=== PATIENT | female | born 1965 | race Two or more races ===

== ENCOUNTER 2019-02-05 18:58 | Emergency (ER) | payer OTHER ==
[~2019-02-05] VITALS: Ht 147.3 cm; Wt 54.4 kg
[2019-02-05] MEDS ORDERED: IV NORMAL SALINE 1000ML BAG 1,000 ML IV ONE (19:30)
[2019-02-05] MEDS ORDERED: FAMOTIDINE 20 MG/2 ML VIAL IVP ONE (19:30)
[2019-02-05] MEDS ORDERED: ONDANSETRON PF 4 MG/2 ML VIAL. IV ONE ×2 (19:30→21:30)
[2019-02-05 19:34] LABS: BASO % 0 % (0-3); EOS % 1 % (0-3); HEMATOCRIT 29.7 % (36.0-47.0); HEMOGLOBIN 10.2 g/dL (12.0-15.5); LYMPH # 3.2 x10^3/uL (1.0-4.8); LYMPH % 55 % (24-48); MEAN CORPUSCULAR HEMOGLOBIN 31 pg (25-35); MEAN CORPUSCULAR HGB CONC 34 g/dL (31-37); MEAN CORPUSCULAR VOLUME 90 fL (79-100); MONO # 0.5 x10^3/uL (0.0-1.1); MONO % 8 % (0-9); NEUT # 2.1 x10^3/uL (1.8-7.7); NEUT % 36 % (31-73); PLATELET COUNT 173 x10^3/uL (140-400); RED BLOOD COUNT 3.32 x10^6/uL (3.50-5.40); RED CELL DISTRIBUTION WIDTH 12.3 % (11.5-14.5); WHITE BLOOD COUNT 5.9 x10^3/uL (4.0-11.0)
[2019-02-05 19:38] LABS: CALCIUM 9.2 mg/dL (8.5-10.1); CREATININE 1.3 mg/dL (0.6-1.0); GFR 42.8; POTASSIUM 3.4 mmol/L (3.5-5.1)
[2019-02-05 19:43] LABS: ALBUMIN 3.7 g/dL (3.4-5.0); ALBUMIN/GLOBULIN RATIO 1.1 (1.0-1.7); MAGNESIUM 1.8 mg/dL (1.8-2.4); TOTAL BILIRUBIN 0.2 mg/dL (0.2-1.0); TOTAL PROTEIN 7.1 g/dL (6.4-8.2)
[2019-02-05] MEDS ORDERED: fentaNYL PF VIAL 100 MCG/2 ML VIAL IV ONE (20:15)
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
[2019-02-05 21:19] LABS: BILIRUBIN,URINE NEGATIVE (NEG); CLARITY,URINE CLEAR; COLOR,URINE YELLOW; NITRITE,URINE NEGATIVE (NEG); PH,URINE 7.5; PROTEIN,URINE NEGATIVE (NEG-TRACE); UROBILINOGEN,URINE 0.2 mg/dL (0.2 mg/dL)
[2019-02-05 21:23] LABS: BACTERIA,URINE 0 /HPF (0-FEW); RBC,URINE RARE /HPF (0-2); SQUAMOUS EPITHELIAL CELL,UR OCC /LPF
[2019-02-05] MEDS ORDERED: KETOROLAC 15 MG/ML VIAL. IV ONE (21:30)
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
[2019-02-06] MEDS ORDERED: ONDA4TAB12 PO (00:07)
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
[2019-02-06 00:15] VITALS: BP 115/55
--- NOTE | 2019-02-06 06:05 | EKG ---
[facility] [address] [place] [address] Test Date: 2019-02-05 Test Time: 19:27:52 Pat Name: MACK BRENNAN Department: Room: Gender: F Cutter Hand: : 1965 Requested By: BROCK VOGEL Order Number: [id number] Reading MD: Measurements Intervals [place] Rate: 58 P: 0 [place]: 154 QRS: 11 QRSD: 84 T: 24 QT: 422 QTc: 418 Interpretive Statements SINUS RHYTHM QRS(T) CONTOUR ABNORMALITY CONSIDER ANTEROLATERAL MYOCARDIAL DAMAGE POSSIBLY ABNORMAL ECG RI6.01 No previous ECG available for comparison
== END 2019-02-06 00:20 | disposition home or self-care (01) ==
LOC: ER 18:58
DX: R55 Syncope and collapse (principal); M53.3 Sacrococcygeal disorders, not elsewhere classified; V89.2XXA Person injured in unspecified motor-vehicle accident, traffic, initial encounter; Y93.89 Activity, other specified; Y92.89 Other specified places as the place of occurrence of the external cause; Y99.8 Other external cause status
CPT/HCPCS: 36415; 70450; 71045; 72125; 72170; 72220; 80053; 81001; 82553; 83735; 84484; 85025; 87086; 93005; 96361; 96374; 96375; 96376; 99285; J1885; J2405; J3010; J3490; J7030